=== PATIENT | female | born 1970 | race African-American/Black ===

== ENCOUNTER → 2018-09-04 | Outpatient (CLI) | payer MEDICARE ==
[~2018-09-04] MED LIST: BUPIVACAINE MPF 0.25% 30 ML VIAL. ONE
[2018-09-04 11:01] LABS: BARBITURATES NEG (NEG); BENZODIAZEPINES NEG (NEG); CANNABINOIDS NEG (NEG); COCAINE NEG (NEG); METHADONE NEG (NEG); OPIATES POS (NEG); PHENCYCLIDINE NEG (NEG)
[2018-09-04 11:03] LABS: AMPHETAMINE/METHAMPHETAMINE NEG (NEG)
== END | disposition home or self-care (01) ==
LOC: SURG 08:51
PROVIDERS: ATTEND Anesthesiology
DX: M79.18 Myalgia, other site (principal); G47.33 Obstructive sleep apnea (adult) (pediatric); J30.2 Other seasonal allergic rhinitis; I10 Essential (primary) hypertension; M19.90 Unspecified osteoarthritis, unspecified site; K21.9 Gastro-esophageal reflux disease without esophagitis; Z98.890 Other specified postprocedural states; Z88.0 Allergy status to penicillin; Z79.899 Other long term (current) drug therapy; Z79.01 Long term (current) use of anticoagulants
CPT/HCPCS: 20553; 36415; 80307; J3490

== ENCOUNTER → 2018-09-28 | Outpatient (CLI) | payer MEDICARE ==
[~2018-09-28] MED LIST changes: -BUPIVACAINE MPF 0.25% 30 ML VIAL. ONE; +FERR325T14 PO; +HYDR-2765 PO; +HYDR50TA6 PO; +MELO15TA23 PO; +PREG200C PO; +WARF2TAB96 PO
--- NOTE | 2018-09-28 16:21 | RAD ---
Two-view left shoulder History pain Comparison none FINDINGS: Scapular Y and AP view of the left shoulder are presented. Arthritic changes of the left AC joint are present. No acute fracture or dislocation. IMPRESSION: Degenerative changes of the left AC joint. No acute fracture or dislocation Electronically signed by: Rob Hackett MD (09/28/2018 4:18 PM) [facility] [place]
== END | disposition home or self-care (01) ==
LOC: DXRAD 11:38
PROVIDERS: ATTEND Anesthesiology
DX: M19.012 Primary osteoarthritis, left shoulder (principal)
CPT/HCPCS: 73030

== ENCOUNTER → 2018-10-02 | Outpatient (CLI) | payer MEDICARE | END | disposition home or self-care (01) | LOC: SURG 09:57 | PROVIDERS: ATTEND Anesthesiology | DX: G89.4 Chronic pain syndrome (principal); M06.9 Rheumatoid arthritis, unspecified; M79.18 Myalgia, other site; F11.20 Opioid dependence, uncomplicated; Z79.891 Long term (current) use of opiate analgesic; Z79.899 Other long term (current) drug therapy | CPT/HCPCS: 99214 ==